=== PATIENT | male | born 1940 | race Caucasian/White ===

== ENCOUNTER → 2017-07-05 | Outpatient (CLI) | payer MEDICARE ==
[~2017-07-05] MED LIST: ACEBUTOLOL HCL200 MG PO; ACETAMINOPHEN; ACETAMINOPHEN325 M1 PO; ALBUTEROL SULF8.5 GM INH; AMLODIPINE BES2.5 MG PO; ANTIVERT25 MG PO; ASA81 MG PO; ASPIRIN81 MG PO; BOSENTAN; CHLORTHALIDONE25 MG PO; CHONDROITIN; DIPHENHYDRAMINE25 M1 PO; ENOXAPARIN SQ; FLONASE16 GM; GLUCOSAMINE &1 EAC1 PO; GLUCOSAMINE H1500 MG PO; HYGROTON25 MG; LOVASTATIN20 MG PO; LOVASTATIN40 MG PO; LOVENOX60 MG/0.6 SC; MAGNESIUM; MAGNESIUM250 MG PO; OXYGEN; PLAVIX75 MG PO; RANEXA1000 MG PO; RANITIDINE HCL150 M1 PO; REVATIO20 MG PO; TRACLEER125 MG PO; TRIMETHOPRIM100 MG PO; VITAMIN A10000 UNIT PO; VITAMIN C500 M1 PO; VITAMIN D400 UNI1 PO; VITAMIN E PO; VITAMIN K100 MCG PO; Z GLUCOSAMINE; Z.0.ACEBUTOLOL HCL20; Z.0.LOVASTATIN20 MG; Z.0.PLAVIX75 MG; Z.0.RANEXA500 MG; Z.0.ZANTAC150 MG PO; ZOFRAN ODT4 MG SL; ZOLPIDEM TARTRA10 MG PO; [UNRECOGNIZED DRUG - CODE]; [UNRECOGNIZED DRUG - OTHER]; [UNRECOGNIZED DRUG - OTHER]; [UNRECOGNIZED DRUG - OTHER] PO
[2017-07-05 12:46] LABS: BASOPHILS % 0.6 % (0.0-1.0); EOSINOPHILS # (AUTO) 0.1 (0.0-0.4); EOSINOPHILS % 1.4 % (0.0-6.0); HEMATOCRIT 43.5 % (38.2-49.6); HEMOGLOBIN 14.7 g/dL (14.0-18.0); LYMPHOCYTES # (AUTO) 1.4 (1.0-3.2); LYMPHOCYTES % 27.2 % (18.0-39.1); MEAN CORPUSCULAR HEMOGLOBIN 30.6 pg (28-32); MEAN CORPUSCULAR HGB CONC 33.8 g/dL (31-35); MEAN CORPUSCULAR VOLUME 90.6 fL (81-99); MONOCYTES # (AUTO) 0.9 (0.2-0.8); MONOCYTES % 16.7 % (4.4-11.3); NEUTROPHILS # (AUTO) 2.8 (2.1-6.9); NEUTROPHILS % 53.7 % (38.7-80.0); PLATELET COUNT 151 x10e3/uL (140-360); RED CELL DISTRIBUTION WIDTH 13.9 % (11.7-14.4)
[2017-07-05 13:06] LABS: ALANINE AMINOTRANSFERASE 17 IU/L (0-55); ALBUMIN/GLOBULIN RATIO 1.2 (0.8-2.0); ALKALINE PHOSPHATASE 51 IU/L (40-150); ANION GAP 13.3 mmol/L (8-16); BLOOD UREA NITROGEN 15 mg/dL (7-26); BUN/CREATININE RATIO 14 (6-25); CARBON DIOXIDE 23 mmol/L (22-29); CHLORIDE 101 mmol/L (98-107); CHOL/HDL RATIO 2.4 (3.9-4.7); CHOLESTEROL 148 MD/DL (0-199); CREATINE KINASE 92 IU/L (30-200); CREATININE, SERUM 1.05 mg/dL (0.72-1.25); EST GLOMERULAR FILTRATION RATE > 60 ML/MIN (60-); GLUCOSE 91 mg/dL (74-118); HDL CHOLESTEROL 61 MG/DL (40-60); IRON 39 ug/dL (65-175); LDL CHOLESTEROL 76 MG/DL (60-130); POTASSIUM 4.3 mmol/L (3.5-5.1); SODIUM 133 mmol/L (136-145); TRIGLYCERIDES 55 MG/DL (0-149)
--- NOTE | 2017-07-05 15:08 | Cardiology Report ---
DATE OF STUDY: July 05, 2017 NUCLEAR GATED MYOCARDIAL PERFUSION SCAN Thank you, Dr. Berny Cool, for this procedure consultation. Lexiscan injected 0.4 mg as stress agent. Myoview injected 10 mCi for resting protocol and 28 mCi for stress protocol. IMPRESSION: Left ventricular enlargement. Left ventricular ejection fraction 40%. Inferolateral scar along with hypokinesia noted. No ischemia noted. Job#: [id number]
== END ==
LOC: NM 07:37
PROVIDERS: ATTEND Internal Medicine Cardiovascular Disease
DX: R07.9 Chest pain, unspecified (principal); I25.119 Atherosclerotic heart disease of native coronary artery with unspecified angina pectoris
CPT/HCPCS: 36415; 78452; 80053; 80061; 82550; 83540; 85025; 85379; 93017; A9502

== ENCOUNTER 2020-12-04 12:45 | Inpatient (IN) | payer MEDICARE ==
[~2020-12-04] VITALS: Ht 165.1 cm; Wt 62.2 kg
[2020-12-04] MEDS ORDERED: ASPIRIN 81 MG CHEW TAB PO ONE ×2 (13:00→14:30)
[2020-12-04 13:25] LABS: BASOPHILS % 0.5 % (0.0-1.0); EOSINOPHILS # (AUTO) 0.1 (0.0-0.4); EOSINOPHILS % 1.3 % (0.0-6.0); HEMATOCRIT 42.4 % (38.2-49.6); HEMOGLOBIN 13.7 g/dL (14.0-18.0); LYMPHOCYTES # (AUTO) 1.5 (1.0-3.2); LYMPHOCYTES % 25.3 % (18.0-39.1); MEAN CORPUSCULAR HEMOGLOBIN 31.3 pg (28-32); MEAN CORPUSCULAR HGB CONC 32.3 g/dL (31-35); MEAN CORPUSCULAR VOLUME 96.8 fL (81-99); MONOCYTES # (AUTO) 0.9 (0.2-0.8); MONOCYTES % 14.5 % (4.4-11.3); NEUTROPHILS # (AUTO) 3.5 (2.1-6.9); NEUTROPHILS % 58.1 % (38.7-80.0); PLATELET COUNT 131 x10e3/uL (140-360); RED BLOOD COUNT 4.38 x10e6/uL (4.3-5.7)
[2020-12-04 13:44] LABS: ALBUMIN 3.7 g/dL (3.5-5.0); ANION GAP 17.5 mmol/L (8-16); CALCIUM 9.4 mg/dL (8.4-10.2); CREATININE, SERUM 1.1 mg/dL (0.72-1.25); POTASSIUM 4.5 mmol/L (3.5-5.1)
[2020-12-04 13:51] LABS: B-TYPE NATRIURETIC PEPTIDE2 2164.7 pg/mL (0-100)
[2020-12-04 13:53] LABS: CREATINE KINASE MB 3.5 ng/mL (0-5.0)
[2020-12-04] MEDS: FUROSEMIDE INJ 10 MG/ML 4 ML VIAL IV SCH (15:33)
[2020-12-04 16:00] VITALS: BP 106/77
[2020-12-04 16:03] VITALS: BP 123/79
[2020-12-04] MEDS ORDERED: ACETAMINOPHEN 325 MG TAB PO PRN (16:30)
[2020-12-04] MEDS ORDERED: Vancomycin IV 1 GM in SODIUM CHLORIDE 0.9% 250ML 250 ML IV ONE (16:45)
[2020-12-04] MEDS ORDERED: SODIUM CHLORIDE 0.9% 50ML 50 ML ONE (17:19)
[2020-12-04] MEDS ORDERED: GLUCOSAMINE1000 MG PO (18:51)
[2020-12-04] MEDS ORDERED: CHONDROITIN SU100 GM PO (18:51)
[2020-12-04] MEDS ORDERED: DIGOXIN125 MCG PO (18:51)
[2020-12-04] MEDS ORDERED: DIPHENHYDRAMINE25 MG PO (18:51)
[2020-12-04] MEDS ORDERED: TRAZODONE HCL50 MG PO (18:51)
[2020-12-04] MEDS ORDERED: FLUDROCORTISON0.1 MG PO (18:51)
[2020-12-04] MEDS ORDERED: FEROSUL325 MG PO (18:51)
[2020-12-04] MEDS ORDERED: BENEFIBER1 EAC1 (18:51)
[2020-12-04] MEDS ORDERED: ASPIRIN81 MG PO (18:51)
[2020-12-04] MEDS ORDERED: FUROSEMIDE40 MG PO (18:51)
[2020-12-04] MEDS ORDERED: SPIRONOLACTONE25 MG PO (18:51)
[2020-12-04] MEDS ORDERED: VITAMIN C500 MG PO (18:51)
[2020-12-04] MEDS ORDERED: ELIQUIS2.5 MG PO (18:51)
[2020-12-04] MEDS ORDERED: CARVEDILOL3.125 MG PO (18:51)
[2020-12-04] MEDS ORDERED: CALCIUM500 MG (18:51)
[2020-12-04] MEDS ORDERED: MECLIZINE HCL12.5 MG PO (18:51)
[2020-12-04 20:00] VITALS: BP 112/76
[2020-12-04] MEDS: CEFEPIME 1 GM in SODIUM CHLORIDE 0.9% 50ML 50 ML IV SCH (20:07)
[2020-12-04 21:00] VITALS: BP 112/76
[2020-12-04 21:05] LABS: CREATINE KINASE MB 3.2 ng/mL (0-5.0)
[2020-12-04] MEDS: ZOLPIDEM TARTRATE 5 MG TAB PO SCH (21:27)
[2020-12-04 23:56] VITALS: BP 92/61
[2020-12-05] VITALS (14 sets, daily range): BP systolic 87–119; BP diastolic 59–89
[2020-12-05] MEDS: FUROSEMIDE INJ 10 MG/ML 4 ML VIAL IV SCH (02:30)
[2020-12-05 03:04] LABS: CLARITY,URINE SL CLOUDY (CLEAR); COLOR,URINE YELLOW (YELLOW); KETONES,URINE NEGATIVE (NEGATIVE); LEUKOCYTE ESTERASE ,URINE SMALL (NEGATIVE); NITRITE,URINE NEGATIVE (NEGATIVE); PROTEIN,URINE DIPSTICK 1+ (NEGATIVE); URINE UROBILINOGEN 0.2 mg/dL (0.2 - 1)
[2020-12-05 03:13] LABS: BACTERIA,URINE FEW /HPF; EPITHELIAL CELLS,URINE MODERATE /LPF; RBC,URINE 21-50 /HPF (0-5)
[2020-12-05 04:40] LABS: BASOPHILS % 0.4 % (0.0-1.0); EOSINOPHILS # (AUTO) 0.1 (0.0-0.4); EOSINOPHILS % 1.5 % (0.0-6.0); HEMATOCRIT 36.6 % (38.2-49.6); HEMOGLOBIN 11.8 g/dL (14.0-18.0); LYMPHOCYTES # (AUTO) 1.5 (1.0-3.2); LYMPHOCYTES % 28.3 % (18.0-39.1); MEAN CORPUSCULAR HEMOGLOBIN 30.9 pg (28-32); MEAN CORPUSCULAR HGB CONC 32.2 g/dL (31-35); MEAN CORPUSCULAR VOLUME 95.8 fL (81-99); MONOCYTES % 17.8 % (4.4-11.3); NEUTROPHILS # (AUTO) 2.8 (2.1-6.9); NEUTROPHILS % 51.6 % (38.7-80.0); PLATELET COUNT 108 x10e3/uL (140-360); RED BLOOD COUNT 3.82 x10e6/uL (4.3-5.7); RED CELL DISTRIBUTION WIDTH 15.1 % (11.7-14.4)
[2020-12-05 05:01] LABS: ALBUMIN 3.3 g/dL (3.5-5.0); ALBUMIN/GLOBULIN RATIO 1.1 (0.8-2.0); ANION GAP 13.8 mmol/L (8-16); CALCIUM 8.5 mg/dL (8.4-10.2); CREATININE, SERUM 1.24 mg/dL (0.72-1.25); POTASSIUM 3.8 mmol/L (3.5-5.1)
[2020-12-05] MEDS: CEFEPIME 1 GM in SODIUM CHLORIDE 0.9% 50ML 50 ML IV SCH ×2 (05:53→16:56)
[2020-12-05] MEDS ORDERED: METHYLPREDNISOLONE SOD SUCC 125 MG/2ML VIAL IV ONE (08:15)
[2020-12-05] MEDS: APIXAB 2.5 MG TABLET PO SCH (08:42)
[2020-12-05] MEDS: SPIRONOLACTONE 25 MG TAB PO SCH (08:42)
[2020-12-05] MEDS: FLUDROCORTISONE ACETATE 0.1 MG TAB PO SCH (08:42)
[2020-12-05] MEDS: DIGOXIN 0.125 MG TAB PO SCH (08:42)
[2020-12-05] MEDS: CARVEDILOL 3.125 MG TAB PO SCH ×2 (08:42→15:40)
[2020-12-05] MEDS: BOSENTAN 125 MG PO SCH ×3 (08:42→15:40)
[2020-12-05] MEDS: ASCORBIC ACID 500 MG TAB PO SCH (08:43)
[2020-12-05] MEDS: CLOPIDOGREL BISULFATE 75 MG TAB PO SCH (08:43)
[2020-12-05] MEDS ORDERED: ASPIRIN 81 MG CHEW TAB PO SCH (09:00)
[2020-12-05] MEDS ORDERED: RANOLAZINE 500 MG TABSR PO SCH (10:00)
[2020-12-05 12:21] LABS: % IRON SATURATION 10 % (15-50); IRON 44 ug/dL (65-175); TOTAL IRON BINDING CAPACITY 448 ug/dL (261-478); TRANSFERRIN 320 mg/dL (174-364)
[2020-12-05] MEDS ORDERED: FUROSEMIDE INJ 10 MG/ML 4 ML VIAL IV ONE (15:45)
[2020-12-05] MEDS ORDERED: SIMVASTATIN 40 MG TAB PO SCH (21:00)
[2020-12-05] MEDS: SIMVASTATIN 20 MG TAB PO SCH (22:56)
[2020-12-05] MEDS: ZOLPIDEM TARTRATE 5 MG TAB PO SCH (22:56)
[2020-12-06] VITALS (8 sets, daily range): BP systolic 106–125; BP diastolic 72–87
[2020-12-06 04:43] LABS: BASOPHILS % 0.2 % (0.0-1.0); EOSINOPHILS % 0.3 % (0.0-6.0); HEMATOCRIT 35.1 % (38.2-49.6); HEMOGLOBIN 11.6 g/dL (14.0-18.0); LYMPHOCYTES # (AUTO) 1.5 (1.0-3.2); LYMPHOCYTES % 25.2 % (18.0-39.1); MEAN CORPUSCULAR HEMOGLOBIN 30.7 pg (28-32); MEAN CORPUSCULAR VOLUME 92.9 fL (81-99); MONOCYTES % 15.7 % (4.4-11.3); NEUTROPHILS # (AUTO) 3.6 (2.1-6.9); NEUTROPHILS % 58.3 % (38.7-80.0); PLATELET COUNT 123 x10e3/uL (140-360); RED BLOOD COUNT 3.78 x10e6/uL (4.3-5.7); RED CELL DISTRIBUTION WIDTH 14.6 % (11.7-14.4)
[2020-12-06 05:12] LABS: ALBUMIN 3.5 g/dL (3.5-5.0); ALBUMIN/GLOBULIN RATIO 1.2 (0.8-2.0); ANION GAP 14.3 mmol/L (8-16); CALCIUM 8.3 mg/dL (8.4-10.2); CREATININE, SERUM 1.17 mg/dL (0.72-1.25); POTASSIUM 3.3 mmol/L (3.5-5.1)
[2020-12-06] MEDS: CEFEPIME 1 GM in SODIUM CHLORIDE 0.9% 50ML 50 ML IV SCH ×2 (06:25→17:45)
[2020-12-06] MEDS: SPIRONOLACTONE 25 MG TAB PO SCH (08:44)
[2020-12-06] MEDS: FUROSEMIDE INJ 10 MG/ML 4 ML VIAL IV SCH (08:44)
[2020-12-06] MEDS: CLOPIDOGREL BISULFATE 75 MG TAB PO SCH (08:45)
[2020-12-06] MEDS: CARVEDILOL 3.125 MG TAB PO SCH ×2 (08:45→17:45)
[2020-12-06] MEDS: DIGOXIN 0.125 MG TAB PO SCH (08:45)
[2020-12-06] MEDS: APIXAB 2.5 MG TABLET PO SCH (08:45)
[2020-12-06] MEDS: ASCORBIC ACID 500 MG TAB PO SCH (08:45)
[2020-12-06] MEDS: BOSENTAN 125 MG PO SCH ×2 (08:48→17:44)
[2020-12-06] MEDS: FLUDROCORTISONE ACETATE 0.1 MG TAB PO SCH (09:00)
[2020-12-06] MEDS ORDERED: METHYLPREDNISOLONE SOD SUCC 125 MG/2ML VIAL IV ONE (12:45)
[2020-12-06] MEDS ORDERED: POTASSIUM CHLORIDE 20 MEQ TAB CR PO NR (13:00)
[2020-12-06] MEDS ORDERED: MAGNESIUM SULFATE 2GM/50ML 50 ML IV ONE (17:00)
[2020-12-06] MEDS: FLUTICASONE PROPIONATE NASAL SPRAY NS SCH (19:45)
[2020-12-06] MEDS: SIMVASTATIN 20 MG TAB PO SCH (21:32)
[2020-12-06] MEDS: ZOLPIDEM TARTRATE 5 MG TAB PO SCH (21:46)
[2020-12-07] VITALS (7 sets, daily range): BP systolic 106–130; BP diastolic 57–85
[2020-12-07 04:57] LABS: BASOPHILS % 0.2 % (0.0-1.0); HEMATOCRIT 38.5 % (38.2-49.6); HEMOGLOBIN 12.2 g/dL (14.0-18.0); LYMPHOCYTES # (AUTO) 1.3 (1.0-3.2); LYMPHOCYTES % 21.9 % (18.0-39.1); MEAN CORPUSCULAR HGB CONC 31.7 g/dL (31-35); MEAN CORPUSCULAR VOLUME 94.8 fL (81-99); MONOCYTES # (AUTO) 0.6 (0.2-0.8); MONOCYTES % 10.2 % (4.4-11.3); NEUTROPHILS % 67.4 % (38.7-80.0); PLATELET COUNT 140 x10e3/uL (140-360); RED BLOOD COUNT 4.06 x10e6/uL (4.3-5.7); RED CELL DISTRIBUTION WIDTH 14.8 % (11.7-14.4)
[2020-12-07 05:19] LABS: ALBUMIN 3.6 g/dL (3.5-5.0); ALBUMIN/GLOBULIN RATIO 1.1 (0.8-2.0); ANION GAP 12.5 mmol/L (8-16); CALCIUM 8.6 mg/dL (8.4-10.2); CREATININE, SERUM 0.88 mg/dL (0.72-1.25); POTASSIUM 3.5 mmol/L (3.5-5.1)
[2020-12-07] MEDS: CEFEPIME 1 GM in SODIUM CHLORIDE 0.9% 50ML 50 ML IV SCH ×2 (06:34→18:00)
[2020-12-07] MEDS: SPIRONOLACTONE 25 MG TAB PO SCH (08:56)
[2020-12-07] MEDS: FUROSEMIDE INJ 10 MG/ML 4 ML VIAL IV SCH (08:56)
[2020-12-07] MEDS: APIXAB 2.5 MG TABLET PO SCH (08:56)
[2020-12-07] MEDS: FLUDROCORTISONE ACETATE 0.1 MG TAB PO SCH (08:56)
[2020-12-07] MEDS: CLOPIDOGREL BISULFATE 75 MG TAB PO SCH (08:56)
[2020-12-07] MEDS: ASCORBIC ACID 500 MG TAB PO SCH (08:56)
[2020-12-07] MEDS: CARVEDILOL 3.125 MG TAB PO SCH ×2 (08:58→19:48)
[2020-12-07] MEDS: BOSENTAN 125 MG PO SCH ×2 (08:58→17:00)
[2020-12-07] MEDS: DIGOXIN 0.125 MG TAB PO SCH (08:58)
[2020-12-07] MEDS: FLUTICASONE PROPIONATE NASAL SPRAY NS SCH ×2 (09:00→17:00)
[2020-12-07] MEDS ORDERED: ALPRAZOLAM 0.25 MG TAB PO PRN (14:15)
[2020-12-07] MEDS ORDERED: SODIUM CHLORIDE 0.9% 250ML 250 ML ONE (17:06)
[2020-12-07] MEDS: IRON SUCROSE 100 MG in SODIUM CHLORIDE 0.9% 100 ML 100 ML IV SCH (19:46)
[2020-12-07] MEDS: SIMVASTATIN 20 MG TAB PO SCH (21:20)
[2020-12-07] MEDS: ZOLPIDEM TARTRATE 5 MG TAB PO SCH (21:20)
[2020-12-08] VITALS (7 sets, daily range): BP systolic 98–112; BP diastolic 66–77
[2020-12-08] MEDS: CEFEPIME 1 GM in SODIUM CHLORIDE 0.9% 50ML 50 ML IV SCH (05:27)
[2020-12-08] MEDS: BOSENTAN 125 MG PO SCH ×2 (08:57→16:46)
[2020-12-08] MEDS: FUROSEMIDE INJ 10 MG/ML 4 ML VIAL IV SCH (08:57)
[2020-12-08] MEDS: SPIRONOLACTONE 25 MG TAB PO SCH (08:58)
[2020-12-08] MEDS: CARVEDILOL 3.125 MG TAB PO SCH ×2 (08:58→16:46)
[2020-12-08] MEDS: APIXAB 2.5 MG TABLET PO SCH (08:58)
[2020-12-08] MEDS: ASCORBIC ACID 500 MG TAB PO SCH (08:59)
[2020-12-08] MEDS: FLUDROCORTISONE ACETATE 0.1 MG TAB PO SCH (08:59)
[2020-12-08] MEDS: CLOPIDOGREL BISULFATE 75 MG TAB PO SCH (08:59)
[2020-12-08] MEDS: DIGOXIN 0.125 MG TAB PO SCH (08:59)
[2020-12-08] MEDS: FLUTICASONE PROPIONATE NASAL SPRAY NS SCH ×2 (09:03→16:41)
[2020-12-08] MEDS: IRON SUCROSE 100 MG in SODIUM CHLORIDE 0.9% 100 ML 100 ML IV SCH (14:15)
[2020-12-08] MEDS: ZOLPIDEM TARTRATE 5 MG TAB PO SCH (21:41)
[2020-12-08] MEDS: SIMVASTATIN 20 MG TAB PO SCH (21:41)
[2020-12-09] VITALS: BP 98/67
[2020-12-09 03:20] VITALS: BP 98/67
[2020-12-09 04:00] VITALS: BP 120/76
[2020-12-09 05:06] LABS: BASOPHILS % 0.7 % (0.0-1.0); EOSINOPHILS # (AUTO) 0.2 (0.0-0.4); EOSINOPHILS % 2.8 % (0.0-6.0); HEMATOCRIT 37.2 % (38.2-49.6); HEMOGLOBIN 12.3 g/dL (14.0-18.0); LYMPHOCYTES # (AUTO) 1.6 (1.0-3.2); LYMPHOCYTES % 29.6 % (18.0-39.1); MEAN CORPUSCULAR HEMOGLOBIN 30.8 pg (28-32); MEAN CORPUSCULAR HGB CONC 33.1 g/dL (31-35); MEAN CORPUSCULAR VOLUME 93.2 fL (81-99); MONOCYTES # (AUTO) 0.8 (0.2-0.8); MONOCYTES % 14.6 % (4.4-11.3); NEUTROPHILS # (AUTO) 2.8 (2.1-6.9); NEUTROPHILS % 52.1 % (38.7-80.0); PLATELET COUNT 147 x10e3/uL (140-360); RED BLOOD COUNT 3.99 x10e6/uL (4.3-5.7); RED CELL DISTRIBUTION WIDTH 14.5 % (11.7-14.4)
[2020-12-09 05:21] LABS: ALBUMIN 3.2 g/dL (3.5-5.0); ALBUMIN/GLOBULIN RATIO 1.2 (0.8-2.0); ANION GAP 13.1 mmol/L (8-16); CALCIUM 8.1 mg/dL (8.4-10.2); CREATININE, SERUM 0.8 mg/dL (0.72-1.25); MAGNESIUM 1.9 MG/DL (1.3-2.1); POTASSIUM 3.1 mmol/L (3.5-5.1)
[2020-12-09 08:01] VITALS: BP 122/74
[2020-12-09 08:21] VITALS: BP 122/74
== END 2020-12-09 08:14 | disposition home or self-care (01) | DRG 314 ==
LOC: ER 12:51 → ERHOLD 14:24 → MED/SURG2 15:56 → ICU 12-05 12:13 → IMCU 12-05 19:21 → ICU 12-06 23:03 → MED/SURG2 12-07 08:18
PROVIDERS: ADMIT Internal Medicine; ATTEND Internal Medicine
DX: I27.22 Pulmonary hypertension due to left heart disease (principal); I50.23 Acute on chronic systolic (congestive) heart failure; J96.21 Acute and chronic respiratory failure with hypoxia; I13.0 Hypertensive heart and chronic kidney disease with heart failure and stage 1 through stage 4 chronic kidney disease, or unspecified chronic kidney disease; N39.0 Urinary tract infection, site not specified; J44.9 Chronic obstructive pulmonary disease, unspecified; I25.10 Atherosclerotic heart disease of native coronary artery without angina pectoris; E78.5 Hyperlipidemia, unspecified; N18.30 Chronic kidney disease, stage 3 unspecified; I48.0 Paroxysmal atrial fibrillation; Z79.01 Long term (current) use of anticoagulants; D64.9 Anemia, unspecified; E78.00 Pure hypercholesterolemia, unspecified; D69.6 Thrombocytopenia, unspecified; H91.90 Unspecified hearing loss, unspecified ear; I25.2 Old myocardial infarction; N31.2 Flaccid neuropathic bladder, not elsewhere classified; H35.30 Unspecified macular degeneration; Z95.5 Presence of coronary angioplasty implant and graft; I27.81 Cor pulmonale (chronic); K76.1 Chronic passive congestion of liver; M48.54XD Collapsed vertebra, not elsewhere classified, thoracic region, subsequent encounter for fracture with routine healing; D63.1 Anemia in chronic kidney disease
CPT/HCPCS: 36415; 71045; 76705; 80053; 80162; 81001; 82550; 82553; 83540; 83605; 83735; 83880; 84466; 84484; 85025; 87040; 93005; 93306; 99251; 99284; J0692; J1756; J1940; J2930; J3370; J3475; J7050

== ENCOUNTER 2021-03-06 15:57 | Inpatient (IN) | payer MEDICARE ==
[~2021-03-06] VITALS: Ht 165.1 cm; Wt 65.4 kg
[~2021-03-06 15:57] MED LIST changes: +BENEFIBER1 EAC1; +CALCIUM500 MG; +CARVEDILOL3.125 MG PO; +CHONDROITIN SU100 GM PO; +DIGOXIN125 MCG PO; +DIPHENHYDRAMINE25 MG PO; +ELIQUIS2.5 MG PO; +FEROSUL325 MG PO; +FLUDROCORTISON0.1 MG PO; +FUROSEMIDE40 MG PO; +GLUCOSAMINE1000 MG PO; +MECLIZINE HCL12.5 MG PO; +SPIRONOLACTONE25 MG PO; +TRAZODONE HCL50 MG PO; +VITAMIN C500 MG PO
[2021-03-06] MEDS ORDERED: ASPIRIN 81 MG CHEW TAB PO ONE (16:15)
[2021-03-06 16:29] LABS: BASOPHILS % 0.2 % (0.0-1.0); EOSINOPHILS % 0.2 % (0.0-6.0); HEMOGLOBIN 10.4 g/dL (14.0-18.0); LYMPHOCYTES # (AUTO) 0.7 (1.0-3.2); LYMPHOCYTES % 12.2 % (18.0-39.1); MEAN CORPUSCULAR HEMOGLOBIN 26.9 pg (28-32); MEAN CORPUSCULAR HGB CONC 30.6 g/dL (31-35); MEAN CORPUSCULAR VOLUME 87.9 fL (81-99); MONOCYTES # (AUTO) 0.9 (0.2-0.8); MONOCYTES % 16.1 % (4.4-11.3); NEUTROPHILS % 70.6 % (38.7-80.0); PLATELET COUNT 110 x10e3/uL (140-360); RED BLOOD COUNT 3.87 x10e6/uL (4.3-5.7); RED CELL DISTRIBUTION WIDTH 15.5 % (11.7-14.4)
[2021-03-06 16:46] LABS: ALBUMIN 3.8 g/dL (3.5-5.0); ANION GAP 22.6 mmol/L (8-16); CALCIUM 9.2 mg/dL (8.4-10.2); CREATININE, SERUM 2.76 mg/dL (0.72-1.25); POTASSIUM 4.6 mmol/L (3.5-5.1)
[2021-03-06 16:52] LABS: CREATINE KINASE MB 4.8 ng/mL (0-5.0)
[2021-03-06] MEDS ORDERED: SODIUM CHLORIDE FLUSH 10 ML SYR INJ PRN (18:00)
[2021-03-06 19:30] VITALS: BP 131/86
[2021-03-06] MEDS ORDERED: FUROSEMIDE40 MG PO (20:56)
[2021-03-06] MEDS ORDERED: RANEXA500 MG PO (20:56)
[2021-03-06] MEDS ORDERED: ELIQUIS2.5 MG PO (20:59)
[2021-03-06 21:00] VITALS: BP 109/65
[2021-03-06] MEDS ORDERED: TRACLEER125 MG PO (21:01)
[2021-03-06] MEDS ORDERED: POTASSIUM GLUCO99 MG PO (21:08)
[2021-03-06 21:14] VITALS: BP 131/86
[2021-03-07] VITALS (10 sets, daily range): BP systolic 100–122; BP diastolic 67–76
[2021-03-07 06:10] LABS: BASOPHILS # (AUTO) 0.1 (0.0-0.1); BASOPHILS % 0.8 % (0.0-1.0); EOSINOPHILS # (AUTO) 0.1 (0.0-0.4); EOSINOPHILS % 0.9 % (0.0-6.0); HEMATOCRIT 28.1 % (38.2-49.6); HEMOGLOBIN 8.6 g/dL (14.0-18.0); LYMPHOCYTES # (AUTO) 1.3 (1.0-3.2); MEAN CORPUSCULAR HEMOGLOBIN 26.9 pg (28-32); MEAN CORPUSCULAR HGB CONC 30.6 g/dL (31-35); MEAN CORPUSCULAR VOLUME 87.8 fL (81-99); MONOCYTES # (AUTO) 1.2 (0.2-0.8); MONOCYTES % 18.8 % (4.4-11.3); NEUTROPHILS # (AUTO) 3.7 (2.1-6.9); NEUTROPHILS % 57.9 % (38.7-80.0); PLATELET COUNT 103 x10e3/uL (140-360); RED CELL DISTRIBUTION WIDTH 15.3 % (11.7-14.4)
[2021-03-07 07:07] LABS: ALBUMIN 3.2 g/dL (3.5-5.0); ANION GAP 15.1 mmol/L (8-16); CALCIUM 8.3 mg/dL (8.4-10.2); CREATININE, SERUM 2.17 mg/dL (0.72-1.25); POTASSIUM 4.1 mmol/L (3.5-5.1)
[2021-03-07 07:37] LABS: CREATINE KINASE MB 3.5 ng/mL (0-5.0)
[2021-03-07 11:46] LABS: % IRON SATURATION 7 % (15-50); IRON 37 ug/dL (65-175); TOTAL IRON BINDING CAPACITY 496 ug/dL (261-478); TRANSFERRIN 354 mg/dL (174-364)
[2021-03-07] MEDS: IRON SUCROSE 100 MG in SODIUM CHLORIDE 0.9% 100 ML 100 ML IV SCH (13:12)
[2021-03-07] MEDS: ACETAMINOPHEN 325 MG TAB PO PRN ×2 (15:10→20:55)
[2021-03-07] MEDS ORDERED: RANOLAZINE 500 MG TABSR PO ONE (15:30)
[2021-03-07 15:54] LABS: CREATINE KINASE MB 3.6 ng/mL (0-5.0)
[2021-03-07] MEDS ORDERED: SODIUM CHLORIDE 0.9% 1000ML 1,000 ML IV ONE (16:15)
[2021-03-07] MEDS: RANOLAZINE 500 MG TABSR PO SCH (20:32)
[2021-03-08] VITALS (8 sets, daily range): BP systolic 94–112; BP diastolic 20–72
[2021-03-08 05:01] LABS: BASOPHILS % 0.6 % (0.0-1.0); EOSINOPHILS # (AUTO) 0.1 (0.0-0.4); HEMOGLOBIN 9.3 g/dL (14.0-18.0); LYMPHOCYTES # (AUTO) 1.4 (1.0-3.2); LYMPHOCYTES % 18.9 % (18.0-39.1); MEAN CORPUSCULAR HEMOGLOBIN 26.9 pg (28-32); MEAN CORPUSCULAR VOLUME 86.7 fL (81-99); MONOCYTES # (AUTO) 1.1 (0.2-0.8); MONOCYTES % 15.7 % (4.4-11.3); NEUTROPHILS # (AUTO) 4.5 (2.1-6.9); NEUTROPHILS % 63.1 % (38.7-80.0); PLATELET COUNT 123 x10e3/uL (140-360); RED BLOOD COUNT 3.46 x10e6/uL (4.3-5.7); RED CELL DISTRIBUTION WIDTH 15.5 % (11.7-14.4)
[2021-03-08 05:29] LABS: ALBUMIN 3.2 g/dL (3.5-5.0); ALBUMIN/GLOBULIN RATIO 0.9 (0.8-2.0); ANION GAP 13.9 mmol/L (8-16); CALCIUM 8.3 mg/dL (8.4-10.2); CREATININE, SERUM 1.51 mg/dL (0.72-1.25)
[2021-03-08 05:34] LABS: POTASSIUM 2.9 mmol/L (3.5-5.1)
[2021-03-08] MEDS: RANOLAZINE 500 MG TABSR PO SCH ×2 (08:05→20:43)
[2021-03-08] MEDS ORDERED: POTASSIUM CHLORIDE 20 MEQ TAB CR PO NR (11:45)
[2021-03-08] MEDS: CLOPIDOGREL BISULFATE 75 MG TAB PO SCH (11:46)
[2021-03-08] MEDS: IRON SUCROSE 100 MG in SODIUM CHLORIDE 0.9% 100 ML 100 ML IV SCH (13:29)
[2021-03-08] MEDS ORDERED: POTASSIUM CHLORIDE 10MEQ/100ML 200 ML IV ONE (14:15)
[2021-03-08] MEDS: TRAZODONE HCL 50 MG TAB PO SCH (20:43)
[2021-03-09] VITALS (7 sets, daily range): BP systolic 101–120; BP diastolic 65–80
[2021-03-09 07:19] LABS: ANION GAP 11.8 mmol/L (8-16); CALCIUM 7.9 mg/dL (8.4-10.2); CREATININE, SERUM 1.04 mg/dL (0.72-1.25); MAGNESIUM 2.1 MG/DL (1.3-2.1); POTASSIUM 3.8 mmol/L (3.5-5.1)
[2021-03-09] MEDS: RANOLAZINE 500 MG TABSR PO SCH ×2 (08:19→20:51)
[2021-03-09] MEDS: CLOPIDOGREL BISULFATE 75 MG TAB PO SCH (08:19)
[2021-03-09] MEDS: IRON SUCROSE 100 MG in SODIUM CHLORIDE 0.9% 100 ML 100 ML IV SCH (13:31)
[2021-03-09] MEDS ORDERED: FUROSEMIDE 20 MG TAB PO NR (14:30)
[2021-03-09] MEDS: CARVEDILOL 3.125 MG TAB PO SCH (17:49)
[2021-03-09] MEDS: TRAZODONE HCL 50 MG TAB PO SCH (20:50)
[2021-03-10] VITALS (11 sets, daily range): BP systolic 98–114; BP diastolic 63–71
[2021-03-10 05:59] LABS: ANION GAP 14.7 mmol/L (8-16); CALCIUM 8.1 mg/dL (8.4-10.2); CREATININE, SERUM 0.93 mg/dL (0.72-1.25); POTASSIUM 3.7 mmol/L (3.5-5.1)
[2021-03-10] MEDS: FUROSEMIDE 20 MG TAB PO SCH (08:23)
[2021-03-10] MEDS: RANOLAZINE 500 MG TABSR PO SCH ×2 (08:25→21:33)
[2021-03-10] MEDS: CARVEDILOL 3.125 MG TAB PO SCH ×2 (08:25→16:29)
[2021-03-10] MEDS: CLOPIDOGREL BISULFATE 75 MG TAB PO SCH (08:25)
[2021-03-10] MEDS ORDERED: SODIUM CHLORIDE 0.9% 1000ML 1,000 ML ONE ×2 (11:44→13:30)
[2021-03-10] MEDS: SODIUM CHLORIDE 0.9% 1000ML 1,000 ML IV SCH ×2 (11:48→22:58)
[2021-03-10] MEDS: IRON SUCROSE 100 MG in SODIUM CHLORIDE 0.9% 100 ML 100 ML IV SCH (13:16)
[2021-03-10] MEDS ORDERED: MIDAZOLAM HCL 2 MG/2 ML VIAL ONE (13:29)
[2021-03-10] MEDS ORDERED: FENTANYL CITRATE/PF 100MCG/2 ML INJ ONE (13:30)
[2021-03-10] MEDS ORDERED: HEPARIN SOD/SOD CHLORIDE 2,000 ML ONE (13:30)
[2021-03-10] MEDS ORDERED: LIDOCAINE HCL 2% LOCAL 20 ML VIAL ONE (13:30)
[2021-03-10] MEDS ORDERED: IOPAMIDOL 370 MG/ML 200 ML INFUS..BTL INJ ONE (13:30)
[2021-03-10] MEDS ORDERED: PRAMIPEXOLE0.375 MG (17:44)
[2021-03-10] MEDS ORDERED: ACETAMINOPHEN 325 MG TAB PO PRN (20:00)
[2021-03-10] MEDS: TRAZODONE HCL 50 MG TAB PO SCH (21:30)
[2021-03-11] VITALS (11 sets, daily range): BP systolic 95–165; BP diastolic 59–77
[2021-03-11] MEDS: CLOPIDOGREL BISULFATE 75 MG TAB PO SCH (08:00)
[2021-03-11] MEDS: FUROSEMIDE 20 MG TAB PO SCH (08:01)
[2021-03-11] MEDS: RANOLAZINE 500 MG TABSR PO SCH ×2 (08:01→20:51)
[2021-03-11] MEDS: CARVEDILOL 3.125 MG TAB PO SCH ×2 (08:01→16:17)
[2021-03-11] MEDS: IRON SUCROSE 100 MG in SODIUM CHLORIDE 0.9% 100 ML 100 ML IV SCH (13:44)
[2021-03-11 18:24] LABS: CLARITY,URINE SL CLOUDY (CLEAR); COLOR,URINE STRAW (YELLOW); KETONES,URINE NEGATIVE (NEGATIVE); LEUKOCYTE ESTERASE ,URINE NEGATIVE (NEGATIVE); NITRITE,URINE NEGATIVE (NEGATIVE); PROTEIN,URINE DIPSTICK NEGATIVE (NEGATIVE); URINE UROBILINOGEN 0.2 mg/dL (0.2 - 1)
[2021-03-11 18:36] LABS: BACTERIA,URINE MODERATE /HPF; RBC,URINE 0-5 /HPF (0-5)
[2021-03-11] MEDS: TRAZODONE HCL 50 MG TAB PO SCH (20:50)
[2021-03-12] VITALS (11 sets, daily range): BP systolic 96–123; BP diastolic 64–82
[2021-03-12 06:01] LABS: BASOPHILS % 0.4 % (0.0-1.0); EOSINOPHILS # (AUTO) 0.1 (0.0-0.4); EOSINOPHILS % 1.1 % (0.0-6.0); HEMATOCRIT 27.5 % (38.2-49.6); HEMOGLOBIN 8.6 g/dL (14.0-18.0); LYMPHOCYTES # (AUTO) 1.2 (1.0-3.2); LYMPHOCYTES % 15.1 % (18.0-39.1); MEAN CORPUSCULAR HEMOGLOBIN 28.8 pg (28-32); MEAN CORPUSCULAR HGB CONC 31.3 g/dL (31-35); MONOCYTES # (AUTO) 1.3 (0.2-0.8); MONOCYTES % 16.1 % (4.4-11.3); NEUTROPHILS # (AUTO) 5.3 (2.1-6.9); PLATELET COUNT 124 x10e3/uL (140-360); RED BLOOD COUNT 2.99 x10e6/uL (4.3-5.7)
[2021-03-12 06:32] LABS: ALBUMIN 3.2 g/dL (3.5-5.0); ANION GAP 12.5 mmol/L (8-16); CREATININE, SERUM 1.23 mg/dL (0.72-1.25); POTASSIUM 3.5 mmol/L (3.5-5.1)
[2021-03-12 07:39] LABS: ABG HCO3 26 mmol/L (22-26); ABG PCO2 33 mmHg (35-45); ABG PH 7.52 (7.35-7.45); ABG PO2 44 mmHg (80-105); ABG TCO2 27
[2021-03-12] MEDS: FUROSEMIDE 20 MG TAB PO SCH (08:08)
[2021-03-12] MEDS: CLOPIDOGREL BISULFATE 75 MG TAB PO SCH (08:08)
[2021-03-12] MEDS: CARVEDILOL 3.125 MG TAB PO SCH ×2 (08:09→16:23)
[2021-03-12] MEDS: RANOLAZINE 500 MG TABSR PO SCH ×2 (08:09→21:26)
[2021-03-12] MEDS: METHYLPREDNISOLONE SOD SUCC 125 MG/2ML VIAL IV SCH ×2 (13:07→21:26)
[2021-03-12] MEDS: IRON SUCROSE 100 MG in SODIUM CHLORIDE 0.9% 100 ML 100 ML IV SCH (13:07)
[2021-03-12] MEDS: TRAZODONE HCL 50 MG TAB PO SCH (21:26)
[2021-03-13] VITALS (9 sets, daily range): BP systolic 99–117; BP diastolic 57–82
[2021-03-13 06:03] LABS: BASOPHILS % 0.2 % (0.0-1.0); HEMATOCRIT 30.7 % (38.2-49.6); HEMOGLOBIN 9.2 g/dL (14.0-18.0); LYMPHOCYTES # (AUTO) 0.6 (1.0-3.2); LYMPHOCYTES % 12.9 % (18.0-39.1); MEAN CORPUSCULAR HEMOGLOBIN 28.3 pg (28-32); MEAN CORPUSCULAR VOLUME 94.5 fL (81-99); MONOCYTES # (AUTO) 0.1 (0.2-0.8); MONOCYTES % 2.9 % (4.4-11.3); NEUTROPHILS # (AUTO) 3.6 (2.1-6.9); NEUTROPHILS % 82.6 % (38.7-80.0); PLATELET COUNT 130 x10e3/uL (140-360); RED BLOOD COUNT 3.25 x10e6/uL (4.3-5.7); RED CELL DISTRIBUTION WIDTH 22.5 % (11.7-14.4)
[2021-03-13 06:26] LABS: ANION GAP 16.1 mmol/L (8-16); CALCIUM 8.1 mg/dL (8.4-10.2); CREATININE, SERUM 1.32 mg/dL (0.72-1.25); POTASSIUM 4.1 mmol/L (3.5-5.1)
[2021-03-13] MEDS: FUROSEMIDE 20 MG TAB PO SCH (08:15)
[2021-03-13] MEDS: CLOPIDOGREL BISULFATE 75 MG TAB PO SCH (08:15)
[2021-03-13] MEDS: METHYLPREDNISOLONE SOD SUCC 125 MG/2ML VIAL IV SCH ×2 (08:15→20:31)
[2021-03-13] MEDS: CARVEDILOL 3.125 MG TAB PO SCH ×2 (08:15→15:44)
[2021-03-13] MEDS: RANOLAZINE 500 MG TABSR PO SCH ×2 (08:16→21:30)
[2021-03-13] MEDS: IRON SUCROSE 100 MG in SODIUM CHLORIDE 0.9% 100 ML 100 ML IV SCH (14:04)
[2021-03-13] MEDS: GUAIFENESIN 600 MG TAB PO SCH ×2 (14:37→20:31)
[2021-03-13] MEDS ORDERED: CYANOCOBALAMIN INJ 1,000 MCG/ML VIAL IM SCH (15:00)
[2021-03-13] MEDS ORDERED: GUAIFENESIN/CODEINE 5 ML LIQD PO PRN (16:15)
[2021-03-13] MEDS: TRAZODONE HCL 50 MG TAB PO SCH (20:31)
[2021-03-14] VITALS (7 sets, daily range): BP systolic 104–115; BP diastolic 69–82
[2021-03-14 05:56] LABS: ANION GAP 16.3 mmol/L (8-16); CALCIUM 8.3 mg/dL (8.4-10.2); CREATININE, SERUM 1.44 mg/dL (0.72-1.25); POTASSIUM 4.3 mmol/L (3.5-5.1)
[2021-03-14] MEDS: METHYLPREDNISOLONE SOD SUCC 125 MG/2ML VIAL IV SCH (08:27)
[2021-03-14] MEDS: CLOPIDOGREL BISULFATE 75 MG TAB PO SCH (08:28)
[2021-03-14] MEDS: CARVEDILOL 3.125 MG TAB PO SCH (08:28)
[2021-03-14] MEDS: FUROSEMIDE 20 MG TAB PO SCH (08:28)
[2021-03-14] MEDS: GUAIFENESIN 600 MG TAB PO SCH (08:28)
[2021-03-14] MEDS: RANOLAZINE 500 MG TABSR PO SCH (08:28)
[2021-03-14] MEDS: IRON SUCROSE 100 MG in SODIUM CHLORIDE 0.9% 100 ML 100 ML IV SCH (13:13)
== END 2021-03-14 15:30 | disposition home or self-care (01) | DRG 286 ==
LOC: ER 16:11 → ERHOLD 17:55 → MED/SURG 19:36
PROVIDERS: ADMIT Internal Medicine Cardiovascular Disease; ATTEND Internal Medicine Cardiovascular Disease
PROC: 4A023N8 Measurement of Cardiac Sampling and Pressure, Bilateral, Percutaneous Approach (ICD-10-PCS; principal; 2021-03-10)
PROC: B2111ZZ Fluoroscopy of Multiple Coronary Arteries using Low Osmolar Contrast (ICD-10-PCS; 2021-03-10)
PROC: B2151ZZ Fluoroscopy of Left Heart using Low Osmolar Contrast (ICD-10-PCS; 2021-03-10)
DX: I13.0 Hypertensive heart and chronic kidney disease with heart failure and stage 1 through stage 4 chronic kidney disease, or unspecified chronic kidney disease (principal); J96.21 Acute and chronic respiratory failure with hypoxia; N17.9 Acute kidney failure, unspecified; I50.22 Chronic systolic (congestive) heart failure; J44.1 Chronic obstructive pulmonary disease with (acute) exacerbation; N18.4 Chronic kidney disease, stage 4 (severe); I25.110 Atherosclerotic heart disease of native coronary artery with unstable angina pectoris; R55 Syncope and collapse; J44.9 Chronic obstructive pulmonary disease, unspecified; I48.91 Unspecified atrial fibrillation; E78.5 Hyperlipidemia, unspecified; F41.9 Anxiety disorder, unspecified; Z99.81 Dependence on supplemental oxygen; I25.2 Old myocardial infarction; Z87.440 Personal history of urinary (tract) infections; Z87.891 Personal history of nicotine dependence; Z88.1 Allergy status to other antibiotic agents; Z88.2 Allergy status to sulfonamides; Z88.8 Allergy status to other drugs, medicaments and biological substances; Z20.822 Contact with and (suspected) exposure to COVID-19; Z95.5 Presence of coronary angioplasty implant and graft; D64.9 Anemia, unspecified; D69.6 Thrombocytopenia, unspecified; N31.2 Flaccid neuropathic bladder, not elsewhere classified; H91.90 Unspecified hearing loss, unspecified ear; H35.30 Unspecified macular degeneration; I07.1 Rheumatic tricuspid insufficiency; H91.91 Unspecified hearing loss, right ear; E87.6 Hypokalemia; I27.20 Pulmonary hypertension, unspecified
CPT/HCPCS: 36415; 36600; 70220; 71045; 71046; 76770; 80048; 80053; 81001; 82550; 82553; 82805; 83540; 83735; 83880; 84466; 84484; 85025; 93005; 93306; 93460; 99284; C1751; C1769; C1887; J0456; J1756; J2001; J2250; J2930; J3010; J3420; J3480; J7030; J7050; Q9967; U0002